=== PATIENT | female | born 1975 | race Caucasian/White ===

== ENCOUNTER 2018-09-03 19:29 | Emergency (ER) | payer OTHER ==
[~2018-09-03] VITALS: Ht 154.9 cm; Wt 68.2 kg
[2018-09-03 19:31] VITALS: Ht 154.9 cm; Wt 68.2 kg
[2018-09-03] MEDS ORDERED: LISINOPRIL20 MG PO (19:34)
[2018-09-03] MEDS ORDERED: LISINOPRIL10 MG PO (19:34)
[2018-09-03] MEDS ORDERED: [UNRECOGNIZED DRUG - REMARK] (19:35)
[2018-09-03] MEDS ORDERED: IRON (19:35)
[2018-09-03] MEDS ORDERED: EC-NAPROSYN500 MG PO (21:10)
[2018-09-03] MEDS ORDERED: CYCLOBENZAPRINE10 MG PO (21:10)
[2018-09-03 21:46] VITALS: BP 148/87
== END 2018-09-03 21:46 | disposition home or self-care (01) ==
LOC: D.ER 19:29
DX: S20.219A Contusion of unspecified front wall of thorax, initial encounter (principal); V43.62XA Car passenger injured in collision with other type car in traffic accident, initial encounter; Y93.89 Activity, other specified; Y92.410 Unspecified street and highway as the place of occurrence of the external cause; M62.838 Other muscle spasm; S13.4XXA Sprain of ligaments of cervical spine, initial encounter